=== PATIENT | male | born 1950 | race Caucasian/White ===

== ENCOUNTER 2016-09-04 16:31 | Inpatient (IN) | payer MEDICARE ==
[~2016-09-04] VITALS: Ht 172.7 cm; Wt 108.0 kg
[2016-09-04] MEDS: MeTOProlol 1 mg/mL 5 mL Inj ONE (11:53)
[~2016-09-04 16:31] MED LIST: FOLI1TAB18 PO; HYDR25TA4 PO; IBUP-1827 PO; MAGN500C4 PO; METH2.5T PO
--- NOTE | 2016-09-04 18:19 | DRSVH ---
PROCEDURE: CT ABDOMEN AND PELVIS WITH CONTRAST ([id number]) INDICATIONS: RIGHT LOWER QUADRANT ABDOMINAL PAIN TECHNIQUE: After the administration of oral and intravenous contrast, 5 mm thick sections acquired from the diap hragms to the symphysis. 5 mm thick coronal and sagittal reformats were performed. For radiation do se reduction, the following was used: automated exposure control, adjustment of mA and/or kV accordi ng to patient size. COMPARISON: None. FINDINGS: Image quality: Excellent. ABDOMEN: Lung bases: Lung bases are clear. Heart size is normal. Solid organs: Liver and spleen are normal in size and enhancement. Coarse calcifications noted in th e superior aspect of the spleen possibly related to prior trauma. Gallbladder contains a small gallst one. Biliary system is non-dilated. Pancreas enhances normally. No adrenal nodules. Kidneys are n ormal in size and enhancement, without hydronephrosis. Peritoneum and bowel: Stomach, small bowel, and colon loops are normal in caliber and wall thickness . No free fluid or air. Appendix is enlarged to a maximum diameter of 1.9 cm. A small, approximatel y 8 mm in diameter appendicolith is noted in the base of the appendix. Mild inflammatory changes not ed adjacent to the appendix. No periappendiceal abscess or free air. Nodes and vessels: No retroperitoneal or mesenteric adenopathy. Aorta and inferior vena cava are no rmal in caliber. Miscellaneous: No ventral hernias. PELVIS: Genitourinary: Bladder wall thickness is normal. Miscellaneous: No inguinal hernias or adenopathy. Bones: No suspicious bony lesions. No vertebral body compression fractures. Left hip arthroplasty. Spine degenerative disc disease and facet arthropathy. L4-L5 grade 1 degenerative spondylolisthesis noted. IMPRESSION: 1. Findings compatible with acute appendicitis. 8mm appendicolith is noted in the base of the appen torey. 2. Cholelithiasis. 2. Findings telephoned to Dr. Miles on 09/04/16 at 1815 hrs. Dictated by: Alana Lopez MD, PhD on 09/04/2016 at 18:11 Approved by: Alana Lopez MD, PhD on 09/04/2016 at 18:17
[2016-09-04] MEDS ORDERED: fentaNYL-PF 50 mCg/mL 2 mL Inj ONE (18:42)
[2016-09-04] MEDS ORDERED: Ondansetron 2 mg/mL 2 mL Inj ONE (18:42)
[2016-09-04] MEDS ORDERED: Dexamethasone 4 mg/mL Inj ONE (18:42)
[2016-09-04] MEDS ORDERED: Ketamine 10 mg/mL 20 mL Inj ONE (18:42)
[2016-09-04] MEDS ORDERED: Piperacillin-Tazo 3.375 Gm Inj 3.375 GM in Dextrose 5% Minibag Plus 50 ML IV ONE (18:50)
--- NOTE | 2016-09-04 19:20 | PCM.HPSURG ---
Subjective Date of Service: Sep 04, 2016 Referring Provider: Admitting Physician: Jean Hoff MD Primary Care Physician: Roxy Huggins MD Attending Physician: Jean Hoff MD Chief Complaint Abdominal pain and nausea . History of Present Illness 66-year-old male with a history of HTN, rheumatoid arthritis, and colon polyps with a normal colonoscopy in April of 2016 who presented to Urgent Care earlier today complaining of abdominal pain and nausea since yesterday. He describes his pain as achy and endorses 4/10 on the pain scale. His pain is aggravated with movement and alleviated with a change in position. Today he states that his pain moved to his RLQ and was associated with nausea but no vomiting. He denies bloody or dark stool, constipation, diarrhea, dizziness, dyspnea, fever, flank pain, hematuria or dysuria. He was sent to [facility] for CT imaging of his abdomen and General Surgery consulted when the CT scan revealed an enlarged appendix with a small, ~8mm appendicolith and inflammatory changes consistent with acute appendicitis. He was subsequently admitted with laparoscopic appendectomy planned for this evening. At Urgent Care, vital signs were stable. He was afebrile and mildly tachycardic with a heart rate of 108 and hypertensive with a BP of 169/84. His SpO2 was 96% on room air with a respiratory rate of 16. Labs including CBC w/diff, CMP, lipase and C-reactive protein were significant for a leukocytosis w/a left shift (WBC of 17.7), elevated CRP (8.7), normal lipase (17), normal AST/ALT (19 /18), normal alkaline phosphatase (70) and hyperglycemia with a serum glucose of 153. He received 3.375g of IV Zosyn. Allergy Allergies: Coded Allergies: No Known Allergies (Unverified , 05/12/16) Medications Home medications Hydrochlorothiazide 25mg PO daily Ibuprofen 600mg PO qid Folic acid 1mg PO daily Magnesium oxide 500mg PO bid Methotrexate sodium 20mg PO weekly. Past Surgical History Operations: Arthroscopic meniscal repair Right Total hip arthroplasty Social History Occupation: Retired. Hx Alcohol Use: No Hx Substance Use: No Hx Tobacco Use: No PMH HEENT History History of ENT Problems?: No HEENT History: Denies:: Abnormal Airway Difficult Intubation Cardiovascular History History of Heart Problems?: Yes Cardiovascular History: Positive for:: Hypertension Denies:: Pacemaker Respiratory History of Respiratory Problem: No Neurological History Hx Neurologic Problems?: No Neurological History: Denies:: CVA Gastrointestinal History HX of GI Problems?: Yes Gastrointestinal History: Denies:: Rectal Bleeding Genitourinary History Hx of Gu Problems?: No Musculoskeletal History Hx Musculoskeletal Problems?: Yes Musculoskeletal History: Positive for:: Joint Replacement Rheumatoid Arthritis Psycho Social History Hx of Psycho/Social Problems?: No Other History Hx Any Other Health Problems?: No Diabetes: No Other History/Comments Hypertension Rheumatoid arthritis Osteoporosis Lumbar arthropathy Remote hx of Hepatitis A (1970s) Colon polyps w/normal Colonoscopy in Apr 2016 Social History Hx Alcohol Use: NoHx Substance Use: NoHx Tobacco Use: No Living Arrangement: with Family (Patient is retired and lives locally with his . ) Family History PMH Family Member: Father (Cardiovascular disease, age 84) Mother (Respiratory failure, age 85) Review of Systems Musculoskeletal: Reports: Other (joint pains) H&P Surgical Exam Exam Diagnostics: CT ABDOMEN AND PELVIS WITH CONTRAST (09/04/16) IMPRESSION: 1. Findings compatible with acute appendicitis. 8mm appendicolith is noted in the base of the appendix. 2. Cholelithiasis. 2. Findings telephoned to Dr. Miles on 09/04/16 at 1815 hrs. Dictated by: Alana Lopez MD, PhD on 09/04/2016 at 18:11 Approved by: Alana Lopez MD, PhD on 09/04/2016 at 18:17 . Assessment & Plan Assessment 66y/o male with a hx of HTN and rheumatoid arthritis who presented to Urgent Care c/o abdominal pain and nausea since yesterday. Admitted to [facility] for laparoscopic appendectomy after CT scan revealed an enlarged appendix, a small ( ~8mm) appendicolith and inflammatory changes consistent with acute appendicitis. Plan: -Admit to med/surg -Keep NPO -Laparoscopic appendectomy tonight -IV antibiotic prophylaxis, 3.75g piperacillin/tazobactam. -IV fluids Attending Statement: I personally interviewed and examined the pt, and I agree with Dr. Jc's assessment and plan. Proceed to lap appendectomy. Massiel Jc DO Sep 04, 2016 19:20 Jean Hoff MD Sep 22, 2016 07:13
[2016-09-04 20:01] VITALS: BP 171/83; PULSE 94; RESP 20; O2SAT 97
[2016-09-04] MEDS ORDERED: Lactated Ringer's 1,000 ML IV ONE (20:24)
--- NOTE | 2016-09-04 20:24 | PCM.HPANE ---
Patient Data Surgeon Admitting Provider:Jean Hoff MD Attending Provider:Jean Hoff MD Primary Care Physician:Roxy Huggins MD Other Provider:Jaimie Adler Anesthesia Reason for Visit Appendicitis Ht/WT & BMI Height (Feet): 5 Height (Inches): 8.00 Weight (Kilograms): 108.000 Body Mass Index 36.09 Allergies Coded Allergies: No Known Allergies (Unverified , 05/12/16) Past Anesthesia History Anesthesia History: Denies:: Abnormal Airway, Anesthesia Reactions, Difficult Intubation, Fam Anesthesia Reaction, Fam Malignant Hypertherm, Malignant Hyperthermia Diabetes History Hx Diabetes?: No MRSA MRSA: No Medications Hypertension Medication: Yes Home Meds Incl Beta Al: No Reported Medications Ibuprofen 600 Mg [id number] Mg PO QID PRN For Pain Ref 0 05/12/16 Magnesium Oxide (Magnesium)500 Mg [id number] Mg PO BID 05/12/16 Folic Acid 1 Mg Tablet1 Mg PO DAILY 30 Days 05/12/16 Methotrexate Sodium (Methotrexate)2.5 Mg [id number] Mg PO WEEKLY 05/12/16 Hydrochlorothiazide 25 Mg [id number] Mg PO DAILY 30 Days Ref 0 05/12/16 History History of ENT Problems?: No HEENT History: Denies:: Abnormal Airway Difficult Intubation Hx of Heart Problems?: Yes Cardiovascular History: Positive for:: Hypertension Denies:: Pacemaker Hx of Respiratory Problem?: No Hx Neurologic Problems?: No Neurological History: Denies:: CVA Hx of GI Problems?: Yes Gastrointestinal History: Denies:: Rectal Bleeding Hx of Problems?: No Hx Musculoskeletal Problems?: Yes Musculoskeletal History: Positive for:: Joint Replacement Rheumatoid Arthritis Hx of Psycho/Social Problems?: No Hx Surgeries?: Yes (Right NOY, right knee) Hx Any Other Health Problems?: No History Blood Transfusions: Positive for:: Accept Blood Products? Denies:: Blood Transfuse Reaction Blood Transfusions Hx Diabetes: No Occupation: Retired. Hx Alcohol Use: Yes (Many years ago)Hx Substance Use: Yes (Many years ago) Have You Smoked inLast 12 mo: No Stop/Bang Treated for Sleep Apnea?: No Do You Have a CPAP Machine?: No P-Blood Pressure: treated: Yes B- Body Mass Index > 35 kg/m2: Yes A- Age over 50: Yes N- Neck Large Circumference: Yes G- Gender Male: Yes CAMILA Risk Assessment: High Risk, =/>3 Yes CAMILA Category 4 OutPt Procedure: Yes Risk Assessment Category Category 1A: Patient has history of documented sleep apnea, and HAS NOT received any narcotic, sedative or anesthesia administration during this stay. Category 1B: Patient has history of documented sleep apnea, and HAS received any narcotic , sedative or anesthesia administration during this stay Category 2: Patient has SUSPECTED Obstructive Sleep Apnea, and HAS received any narcotic , sedative or anesthesia administration during this stay. Category 3: Patient has SUSPECTED Obstructive Sleep Apnea and HAS NOT received narcotic, sedative or anesthesia administration during this stay. Category 4: Outpatient in Procedural Areas with known sleep apnea or who screen positive for High Risk via the STOP/BANG questionnaire. Exam Exam Vital Signs Vital Signs Date Time Temp Pulse Resp B/P Pulse Ox O2 Delivery O2 Flow Rate FiO2 09/04/16 20:01 37.3 94 20 171/83 97 Room Air General Appearance: Alert, Oriented X3, Cooperative, No Acute Distress HEENT/AIRWAY: MP 2 Lungs: Clear to Auscultation, Normal Air Movement Heart: Exam Unremarkable, Regular Rate/Rhythm, No Murmurs/Rubs/Gallops Plan Impression Patient chart reviewed, patient interviewed and anesthestic plan with risks, benefits, and alternatives discussed, and informed consent obtained. ASA Physical Status: ASA2 Mod Systemic Disease Anesthetic Plan: GA Bene/Risks/Altern/Consents: Yes HP Complete Prior to Induction: Yes Alli Obregon MD Sep 04, 2016 20:24
--- NOTE | 2016-09-04 22:39 | PCM.ANEP1 ---
Post Anesthesia Phase 1 PACU Phase 1 Assessment Date of Service: Sep 04, 2016 Vital Signs Vital Signs Date Time Temp Pulse Resp B/P Pulse Ox O2 Delivery O2 Flow Rate FiO2 09/04/16 20:01 37.3 94 20 171/83 97 Room Air Anesthetic Administered: GA Level of Alertness: Awake, talking ULLOA's with Equal Strength: Yes Pain: Yes Pain Scale Score: 2 Nausea or Vomiting: No Oxygen Delivery: Room Air Lungs: Clear to Auscultation, Normal Air Movement Dermatome Level: Full Sensation Alli Obregon MD Sep 04, 2016 22:39
[2016-09-04] MEDS ORDERED: Bupivacaine 0.5%/EPI 50 mL Inj INFILTRATE ONE (22:40)
[2016-09-04] MEDS ORDERED: Lactated Ringer's 1,000 ML IV SCH (23:06)
[2016-09-04] MEDS ORDERED: Lactated Ringer's 500 ML IV PRN (23:06)
[2016-09-04] MEDS ORDERED: Phenylephrine 10,000 mCg/mL Inj IVPUSH PRN (23:10)
[2016-09-04] MEDS ORDERED: HYDROmorphone 1 mg/mL Inj IVPUSH PRN ×2 (23:10→23:40)
[2016-09-04] MEDS ORDERED: MetoCLOpramide 5 mg/mL 2 mL Inj IVPUSH PRN (23:10)
[2016-09-04] MEDS ORDERED: EPHEDrine Sulfate 50 mg/mL Inj IVPUSH PRN (23:10)
[2016-09-04] MEDS ORDERED: Dexamethasone 4 mg/mL Inj IVPUSH PRN (23:10)
[2016-09-04] MEDS ORDERED: Ondansetron 2 mg/mL 2 mL Inj IVPUSH PRN (23:10)
[2016-09-04 23:37] VITALS: BP 205/96; RESP 13; O2SAT 100
[2016-09-04] MEDS ORDERED: Sodium Chloride LOK Flush 10 mL Syringe IVFLUSH PRN (23:40)
[2016-09-04 23:45] VITALS: BP 205/97; PULSE 113; RESP 20; O2SAT 100
[2016-09-04] MEDS: fentaNYL-PF 50 mCg/mL 2 mL Inj IVPUSH PRN ×2 (23:47→23:50)
[2016-09-04 23:50] VITALS: BP 206/93; PULSE 104; RESP 15; O2SAT 100
[2016-09-04] MEDS ORDERED: MeTOProlol 1 mg/mL 5 mL Inj IVPUSH ONE (23:50)
--- NOTE | 2016-09-04 23:50 | PCM.ANEP2 ---
Post Anesthesia Evaluation ASA/CMS Post Anesthesia VS in Patient's Normal Range?: Yes Resp Stable; Airway Patent?: Yes CV Function & Hydration Stable: Yes Mental Status Recovered?: Yes Pain control Satisfactory?: Yes N/V Control Satisfactory?: Yes Alli Obregon MD Sep 04, 2016 23:50
[2016-09-04 23:55] VITALS: BP 178/86; PULSE 98; RESP 12; O2SAT 100
[2016-09-05] VITALS (10 sets, daily range): BP systolic 142–185; BP diastolic 72–90; PULSE 71–97; RESP 12–20; O2SAT 92–100
[2016-09-05] MEDS: MeTOProlol 1 mg/mL 5 mL Inj ONE (00:02)
[2016-09-05] MEDS: Piperacillin-Tazo 3.375 Gm Inj 3.375 GM in Dextrose 5% Minibag Plus 50 ML IV SCH ×3 (04:53→20:48)
[2016-09-05 05:05] LABS: Mean Corpuscular Hemoglobin 30.6 pg (27.0-35.0); Mean Corpuscular Volume 89.4 fL (81-100)
--- NOTE | 2016-09-05 08:12 | PCM.PNSURG ---
Subjective Date of Service: Sep 05, 2016 Visit Information: Reason for Visit: Appendicitis Surgery/Surgery Date: Laparoscopic appendectomy/ Sep 04, 2016 Post-Op Day #1 Date of Admission: Sep 04, 2016 at 18:41 Hospital Day #1 Subjective: Pt endorses RLQ tenderness which he states is tolerable and significantly improved from admission. Pain is tolerable and well controlled. He is not passing gas and has not been up out of bed yet. He denies fever, chills, chest pain, shortness of breath, nausea, and vomiting. Postop General: No Complaints Gastrointestinal: No N/V Pain Management: PO, IV Push (as needed), Good Pain Control Objective Vital Sign- Last 8 Hours Date Time Temp Pulse Resp B/P Pulse Ox O2 Delivery O2 Flow Rate FiO2 09/05/16 04:54 36.8 97 20 157/72 97 Room Air 09/05/16 00:48 36.6 84 18 170/90 94 Room Air 09/05/16 00:25 87 12 160/75 94 Room Air 09/05/16 00:15 85 12 162/83 92 Room Air 09/05/16 00:10 36.7 85 12 166/83 94 Room Air Intake and Output- Last 8 Hour 09/05/16 Cumulative From/Thru 06:59 09/04/16 00:21 - 09/05/16 06:16 Intake Total 760 ml 2560 ml Output Total 1150 ml 1150 ml Balance -390 ml 1410 ml Intake Oral 225 ml 225 ml IV Total 535 ml 2335 ml Output Urine Total 1150 ml 1150 ml General: Alert, Oriented X3, No Acute Distress Lungs: Clear to Auscultation Heart: Exam Unremarkable Abdomen: Soft, Appropriately tender (laprascopic incision appear C/D/I, no erythema or drainage.), Non-distended (bowel tones hypoactive) Extremities: Distal Pulses Palpable, Thigh&Calf Soft/Nontender Neuro: Grossly Neurologically Intact Catheters: None Result Diagram: 09/05/16 0425 Lab & Micro Results: Laboratory Tests Test 09/05/16 04:25 White Blood Count 18.5th/mm3 (3.8-10.1) Red Blood Count 4.81mil/mm3 (4.40-5.80) Hemoglobin 14.7g/dL (13.8-17.2) Hematocrit 43.0% (41.0-50.0) Mean Corpuscular Volume 89.4fL (81-100) Mean Corpuscular Hemoglobin 30.6pg (27.0-35.0) Mean Corpuscular Hemoglobin Concent 34.2% (32.0-37.0) Red Cell Distribution Width 14.3% (12.3-15.4) Platelet Count 252bil/L (150-400) Diagnostics: CT ABDOMEN AND PELVIS WITH CONTRAST (09/05/16) IMPRESSION: 1. Findings compatible with acute appendicitis. 8mm appendicolith is noted in the base of the appendix. 2. Cholelithiasis. 3. Findings telephoned to Dr. Miles on 09/04/16 at 1815 hrs. Dictated by: Alana Lopez MD, PhD on 09/04/2016 at 18:11 Approved by: Alana Lopez MD, PhD on 09/04/2016 at 18:17 . Assessment & Plan Impression 66y/o male with a history of HTN and RA who presented to Urgent Care on 09/04/16 complaining of abdominal pain and nausea. He was sent to [facility] for CT imaging of his abdomen and General Surgery consulted when the CT scan revealed an enlarged appendix with a small, ~8mm appendicolith and inflammatory changes consistent with acute appendicitis. Now on post-operative day #1 from laparoscopic appendectomy Problems: Plan -Due to slight increase in WBC 18.5, was 17.7 on admission. Will continue antibiotics -Clear liquid diet -Pain medication as needed VTE Prophylaxis: Sub-Q Heparin (Unfractionated) Resuscitation Status: CPR: Attempt Resuscitation Attending Statement: I agree with Dr. Jc's assessment and plan. Massiel Jc DO Sep 05, 2016 08:12 Jean Hoff MD Sep 11, 2016 08:31
[2016-09-05] MEDS: HYDROcodone-APAP 5-325 mg Tablet PO PRN ×2 (09:09→18:22)
--- NOTE | 2016-09-05 09:29 | OP ---
[address] [address] OPERATIVE REPORT PATIENT: GARDENIA ANAYA : 1950 MR#: [id number] ADMIT: 09/04/2016 JOB ID: [id number] DATE OF SURGERY: 09/04/2016 SURGEON: Jean Hoff MD DIRECTOR OF LEADERSHIP DEVELOPMENT: Massiel Jc, Resident 1 ANESTHESIA: General. PREOPERATIVE DIAGNOSIS(ES): Acute appendicitis. POSTOPERATIVE DIAGNOSIS(ES): Gangrenous appendicitis. PRINCIPAL PROCEDURE: Laparoscopic appendectomy. INDICATION FOR PROCEDURE: The patient is a 66-year-old male with signs and symptoms consistent with acute appendicitis and his CT scan was also positive for appendicitis. PRINCIPAL FINDING: Nonruptured gangrenous appendicitis. Successful laparoscopic appendectomy. PROCEDURE COURSE: The patient was brought to the operating table and was provided with general anesthesia. The patient was given IV antibiotics and SCDs. A time-out was performed. The patient's abdomen was prepped and draped in the usual sterile fashion. Next, local anesthetic was injected into the left upper quadrant location and a 5 mm stab incision was made. A Veress needle was used to establish pneumoperitoneum. Next, a 5 mm trocar was then placed and the laparoscope was then introduced. Upon visualization of the peritoneal cavity, there was no obvious injury. A second 5 mm trocar was then placed in the left lateral abdomen and a third 12 mm trocar was then placed in the left lower quadrant. The appendix was quickly identified in the right lower quadrant. There was no free fluid or pus noted lateral to the cecum. A window was then made in the mesoappendix and the mesoappendix was detached using electrocautery. The body and base of the appendix was actually adhesed to the retroperitoneum and covered up by scar tissue. Once this scar tissue was able to be detached, I was able to see that the base of the appendix was actually gangrenous appearing. During the manipulation and grasping of the appendix, I did manage to rupture it with some emanation of pus from within the lumen, but this was quickly controlled using suction. Dissection was carried out all the way to its base until we could see there was healthy tissue going to the healthy cecum. Next using one firing of the endoscopic stapler, the base of the appendix was amputated. The site of amputation was not gangrenous. The specimen was then placed into the EndoCatch bag and removed from the patient. Copious irrigation of the pelvis of the right lower quadrant and by the liver were carried out and all the fluid was aspirated. The staple line was inspected and it appeared to be intact and there were no signs of arterial bleeding at the end the case. Next, we turned our attention to the left lower quadrant trocar site. The fascial defect there was then reapproximated using 0 Vicryl suture using the Endo Close device. Next, CO2 was allowed to escape and all the trocars were then removed from the patient. Skin edges were then all closed using absorbable sutures. Steri-Strips and sterile dressing was placed over each wound. By the end of procedure, needle counts and sponge counts were correct. The patient was then extubated and taken to the recovery room in stable satisfactory condition.
[2016-09-06] MEDS: HYDROcodone-APAP 5-325 mg Tablet PO PRN ×2 (02:14→09:39)
[2016-09-06 04:50] VITALS: BP 122/67; PULSE 92; RESP 16; O2SAT 96
--- NOTE | 2016-09-06 07:59 | PCM.PNSURG ---
Subjective Visit Information: Reason for Visit Appendicitis Surgery/Surgery Date Post-Op Day # Date of Admission: Sep 04, 2016 at 18:41 Hospital Day # Subjective: passing flatus, pain control ok via vicodin, no n/v, afebrile, operative finding explained. Objective Objective Awake Abd: soft, dressings intact Vital Sign- Last 8 Hours Date Time Temp Pulse Resp B/P Pulse Ox O2 Delivery O2 Flow Rate FiO2 09/06/16 04:50 36.5 92 16 122/67 96 Room Air 09/06/16 00:30 Room Air Intake and Output- Last 8 Hour 09/06/16 Cumulative From/Thru 07:00 09/04/16 00:21 - 09/06/16 06:40 Intake Total 300 ml 4560 ml Output Total 2400 ml Balance 300 ml 2160 ml Intake Oral 300 ml 2225 ml IV Total 0 ml 2335 ml Output Urine Total 2400 ml # Voids 2 2 Result Diagram: 09/05/16 0425 Assessment & Plan Impression POD #2 s/p lap appy for gangrenous appendicitis Problems: Plan Will check CBC again this am --> if normalized WBC, will d/c home. F/U in 2-3 weeks for postop check OK to take home meds Resuscitation Status: CPR: Attempt Resuscitation Jean Hoff MD Sep 06, 2016 07:59
[2016-09-06 08:48] LABS: BASOPHILS % (AUTO) 0.1 % (0-3); EOSINOPHILS % (AUTO) 0.5 % (0-5); MONOCYTES % (AUTO) 6.3 % (4-12); Mean Corpuscular Hemoglobin 30.9 pg (27.0-35.0); Mean Corpuscular Volume 89.9 fL (81-100); NEUTROPHILS % (AUTO) 84.2 % (40-74); Platelet Count 276 bil/L (150-400)
--- NOTE | 2016-09-06 09:46 | PCM.DISURG ---
Surgical Discharge Instruction Date of Service Sep 06, 2016 Dates of Hospitalization Date of Hospital Admission Sep 04, 2016 at 18:41 Providers Admitting Physician: Jean Hoff MD Primary Care Physician: Roxy Huggins MD Attending Physician: Jean Hoff MD Discharge Diagnosis Discharge Diagnosis s/p lap appendectomy Diet Discharge Diet: No restrictions Activity Discharge Activity-General: Be up and about, Activity as energy allows, No lifting >15 pounds for 2 weeks, No driving while taking narcotic Dressing and Incisional Care Dressing Care: Keep dressing clean, dry & intact Hygiene: May shower Additional Instructions Discharge Instructions Rx: [place] (#15), colace, Augmentin TID x5 d OK to take home meds Follow Up Plan Follow-up Provider (F9): Ana Lau PAC Follow-up appointment: Weeks (2-3) Call your provider for: Fever, Shortness of breath, Increasing abdominal pain, Vomiting, Discharge @ incision, pus discharge Jean Hoff MD Sep 06, 2016 09:46
--- NOTE | 2016-09-08 11:56 | PCM.DC.SUR ---
Discharge Summary Date of Service: Date of Hospital Admission: Sep 04, 2016 at 18:41 Date of Operation(s): September 04, 2016 Date of Discharge: September 06, 2016 Diagnosis at Time of Discharge Primary diagnosis: Gangrenous appendicitis Problems: Operation Laparoscopic Appendectomy Brief History and Physical: 66-year-old male with a history of HTN, rheumatoid arthritis, and colon polyps with a normal colonoscopy in April of 2016 who presented to Urgent Care earlier today complaining of abdominal pain and nausea since yesterday. He describes his pain as achy and endorses 4/10 on the pain scale. His pain is aggravated with movement and alleviated with a change in position. Today he states that his pain moved to his RLQ and was associated with nausea but no vomiting. He denies bloody or dark stool, constipation, diarrhea, dizziness, dyspnea, fever, flank pain, hematuria or dysuria. He was sent to [facility] for CT imaging of his abdomen and General Surgery consulted when the CT scan revealed an enlarged appendix with a small, ~8mm appendicolith and inflammatory changes consistent with acute appendicitis. He was subsequently admitted with laparoscopic appendectomy planned for this evening. At Urgent Care, vital signs were stable. He was afebrile and mildly tachycardic with a heart rate of 108 and hypertensive with a BP of 169/84. His SpO2 was 96% on room air with a respiratory rate of 16. Labs including CBC w/diff, CMP, lipase and C-reactive protein were significant for a leukocytosis w/a left shift (WBC of 17.7), elevated CRP (8.7), normal lipase (17), normal AST/ALT (19/18), normal alkaline phosphatase ( 70) and hyperglycemia with a serum glucose of 153. He received 3.375g of IV Zosyn. Consultants: General Surgery: Dr. Jim Hoff [place] [facility] Course: POD # 1 Subjective: Pt endorses RLQ tenderness which he states is tolerable and significantly improved from admission. Pain is tolerable and well controlled. He is not passing gas and has not been up out of bed yet. He denies fever, chills, chest pain, shortness of breath, nausea, and vomiting. Objective: General: Alert, Oriented X3, No Acute Distress Lungs: Clear to Auscultation Heart: Exam Unremarkable Abdomen: Soft, Appropriately tender (laprascopic incision appear C/D/I, no erythema or drainage.), Non-distended (bowel tones hypoactive) Extremities: Distal Pulses Palpable, Thigh&Calf Soft/Nontender Neuro: Grossly Neurologically Intact Catheters: None Result Diagram: 09/05/16 0425 Plan: -Due to slight increase in WBC 18.5, was 17.7 on admission. Will continue antibiotics -Clear liquid diet -Pain medication as needed POD # 2 Subjective: passing flatus, pain control ok via vicodin, no n/v, afebrile, operative finding explained. Objective: Awake Abd: soft, dressings intact Vital Sign- Last 8 Hours Date Time Temp Pulse Resp B/P Pulse Ox O2 Delivery O2 Flow Rate FiO2 09/06/16 04:50 36.5 92 16 122/67 96 Room Air 09/06/16 00:30 Room Air Intake and Output- Last 8 Hour 09/06/16 Cumulative From/Thru 07:00 09/04/16 00:21 - 09/06/16 06:40 Intake Total 300 ml 4560 ml Output Total 2400 ml Balance 300 ml 2160 ml Intake Oral 300 ml 2225 ml IV Total 0 ml 2335 ml Output Urine Total 2400 ml # Voids 2 2 Impression: POD #2 s/p lap appy for gangrenous appendicitis Plan: Will check CBC again this am --> if normalized WBC, will d/c home. F/U in 2-3 weeks for postop check OK to take home meds Pathology: Pending Disposition: Home. VSS, afebrile, voiding, ambulating, pain controlled, tolerating PO Follow-up Plan: General Surgery Clinic 2-3 weeks Folic Acid (Folic Acid) 1 Mg Tablet 1 MG PO DAILY (Reported) Hydrochlorothiazide (Hydrochlorothiazide) 25 Mg Tablet 25 MG PO DAILY (Reported ) Ibuprofen (Ibuprofen) 600 Mg Tablet 600 MG PO QID PRN PRN For Pain (Reported) Magnesium Oxide (Magnesium) 500 Mg Capsule 500 MG PO BID (Reported) Methotrexate Sodium (Methotrexate) 2.5 Mg Tablet 20 MG PO WEEKLY (Reported) copies to: Roxy Huggins MD, Sherri L PA-C Sep 08, 2016 11:56
--- NOTE | 2016-09-09 11:13 | PATH ---
SURGICAL PATHOLOGY Attending Physician:Jean Hoff M.D. CASE STATUS: Signed Out PATIENT NAME: GARDENIA ANAYA PID: [id number] : 1950 DATE COLLECTED:09/04/2016 00:00 SPECIMEN: Appendix CLINICAL HISTORY: APPENDICITIS 1). APPENDIX FINAL DIAGNOSIS: 1.APPENDIX: ACUTE APPENDICITIS. NO EVIDENCE OF MALIGNANCY. ICD10 CODE K35.80 GROSS DESCRIPTION: Received in formalin, labeled with the patient' s name and "appendix", is one appendix with attached fatty tissue. The fragment measures 8.5 x 3.0 x 2.0 cm. The serosal surface is rich and shaggy. Sectioning reveals the wall to measure 0.3 cm in thickness and the lumen distended to 0.6 cm and filled with firm, brown fecalith matter. Fitting Room Associate sections are submitted in one cassette. ([id number]) MICRO DESCRIPTION: See diagnosis. ICD-9 CODES: CPT CODES: 1: 86349 Electronically Signed Out Sharlene Goldman MD [facility] Pathology [facility] [address], [place] [address] Technical component performed at [facility], [address] [place] [address] Ave[address], [address]
== END 2016-09-06 11:39 | disposition home or self-care (01) | DRG 343 ==
LOC: SCT 16:31 → OSC 18:41
PROVIDERS: ADMIT Surgery; ATTEND Surgery
PROC: 0DTJ4ZZ Resection of Appendix, Percutaneous Endoscopic Approach (ICD-10-PCS; principal; 2016-09-04 21:30)
DX: K35.80 Unspecified acute appendicitis (principal); I10 Essential (primary) hypertension; M06.9 Rheumatoid arthritis, unspecified